=== PATIENT | male | born 1985 | race Caucasian/White ===

== ENCOUNTER 2020-06-30 09:05 | Outpatient (CLI) | payer BC, SELFPAY ==
--- NOTE | 2020-07-10 13:21 | WPDHOMESLEEP ---
Sleep Study - Home Unattended Date of Study: 06/30/20 Ordering Provider: Rai Napier DO Interpreting Provider: Remedios Frias MD Home Sleep Study Type: Apnea Link Air Height: 1.75 m Weight: 73.482 kg Body Mass Index: 23.9 Neck Circumference (inches): 12.5 [place]: 12 Reason for Sleep Study Excessive daytime sleepiness Sleep History Minh Marion is a 35-year-old man who has complaints of jaw and teeth soreness on waking. He sought care from his dentist who suggested a sleep study to see if the clinching of teeth was associated with sleep apnea. His has told him that he snores. He does not feel rested even after sleeping for 8 hours. He constantly snores and frequently is loud enough that she complains about it. 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 He has no family history of sleep issues. He rarely awakens at night with heartburn, belching or coughing. He does not awaken from sleep feeling short of breath. He occasionally has trouble sleep with a cold. He rarely wakes up gasping for breath at night. He occasionally has breathing problems at night observed by others. He never sweats excessively at night. He occasionally notices his heart pounding or beating irregularly at night. He occasionally falls asleep during the day, rarely involuntarily, never while driving. He does not have loss of muscle tone with strong emotion. He occasionally has daytime difficulties due to excessive sleepiness. He does not feel paralyzed on waking or falling asleep. He rarely has vivid dreamlike scenes upon awakening or falling asleep. He does not feel afraid to go to sleep. He rarely has nightmares. He rarely remembers his dreams. He occasionally has racing thoughts. He rarely feels sad or depressed. He occasionally has anxiety. He occasionally has muscular tension and occasionally notices parts of his body jerking. He rarely kicks at night. He frequently has crawling and aching feelings in his legs. He rarely has any kind of leg pain at night. He frequently has morning jaw pain. His sleep questionnaire indicates that he does not grind his teeth during sleep however his initial complaint included clenched jaws at night. He rarely is bothered by pain during the day. He does not awaken with pain during the night. He occasionally wakes up feeling stiff the morning. He rarely wakes up with sore achy muscles. He rarely wakes up with pain in the neck and spine. He has headaches, fatigue, concentration difficulties and he takes antacids regularly. He has occasional morning headaches. Normal bedtime is 10:00 p.m. falling asleep within 5-15 minutes, waking 3-4 times for 10-15 minutes. He often wakes due to a need to urinate which he attributes to kidney stones 14 years ago. Usually when he wakes, he will roll over and try to return to fall asleep again. If his wakefulness is persistent and he can't get back to sleep, he walks around his house. His normal wake up time is 5:30 a.m.. On the weekends, he stays awake later, 12 midnight and wakes at 6:30 a.m. in the morning. He estimates getting 6-8 hours of sleep normally. He does not take naps in the afternoon or evening. A short nap, 10 or 15 minutes long, may be refreshing. He is usually drowsy in the morning for 1 hour. He feels better in the evening compared to the morning. Habits: Former tobacco use. Caffeine 1 serving per day. Alcohol 1 serving per day. [facility] Past Medical History Medical History (Updated 07/10/20 @ 14:23 by Remedios Frias MD) Anxiety History of kidney stones Hyperlipidemia Hypersomnolence Family History Family History Father Patient's father is Social History Social History Smoking status: Former smoker Tobacco type: cigarettes Smoking end date: 03/13/14 Additional smoking a
[2020-07-10 14:22] VITALS: BMI 23.9
== END 2020-06-30 09:06 | disposition home or self-care (01) ==
LOC: ANHCSM 09:05
PROVIDERS: PCP Internal Medicine; Visit Provider Internal Medicine
DX: G47.10 Hypersomnia, unspecified (principal)
CPT/HCPCS: 95806

== ENCOUNTER → 2020-07-27 01:13 | Outpatient (CLI) | payer BC, SELFPAY ==
[2020-07-27 18:48] LABS: SARS-CoV-2 RNA PCR Negative
== END ==
PROVIDERS: PCP Internal Medicine; Visit Provider Internal Medicine Critical Care Medicine
DX: Z01.812 Encounter for preprocedural laboratory examination (principal); Z20.822 Contact with and (suspected) exposure to COVID-19
CPT/HCPCS: C9803; U0003; U0005

== ENCOUNTER 2020-07-29 08:09 | Outpatient (CLI) | payer BC, SELFPAY ==
--- NOTE | 2020-08-14 11:52 | WPDSLEEPSTUD ---
Sleep Study Date of Study: 07/29/20 Ordering Provider: Rai Napier DO Interpreting Physician: Remedios Frias MD Sleep Study Type: Polysomnogram Height: 1.75 m Weight: 73.482 kg Body Mass Index: 23.9 Neck Circumference (inches): 15 [place]: 12 Reason for Sleep Study Non restorative sleep, loud snoring His dentist recommended sleep study due to pain in the teeth and jaws, Sleep History Minh Marion is a 35-year-old male who constantly snores. Frequently it is loud enough that others complain about it. His dentist recommended a sleep study as the patient does have pain in the teeth and jaws. He occasionally awakens at night with heartburn, belching or coughing. He rarely awakens from sleep feeling short of breath. He frequently has trouble sleeping with a cold. He rarely wakes up gasping for breath during the night. He rarely has breathing problems at night observed by others. He does not sweat excessively at night. He rarely notices his heart pounding or beating irregularly at night. He rarely falls asleep during the day. He does not fall asleep involuntarily and he does not fall asleep while driving. he does not have loss of muscle tone was strong emotion. He rarely has daytime difficulties due to excessive sleepiness. He does not feel paralyzed on waking or falling asleep. He rarely has vivid dreamlike scenes upon awakening or falling asleep. He does not feel afraid to go to sleep. He rarely has nightmares. He occasionally remembers his dreams. He frequently has racing thoughts. He rarely feels sad or depressed. He occasionally has anxiety. He occasionally has muscular tension and notices parts of his body jerking. He rarely kicks during the night. He frequently has crawling and aching feelings in his legs. He rarely has any kind of leg pain at night. He occasionally has morning jaw pain. He occasionally grind his teeth during sleep. He rarely is bothered by pain during the day. He is not awakened by pain during the night. He occasionally wakes up feeling stiff in the morning. He never wakes up with sore or achy muscles. He does not wake up with pain in the neck and spine. He has headaches, fatigue and he takes antacids regularly. Normal bedtime is 10:30 p.m. falling asleep within 10-15 minutes typically waking 3-4 times at night to adjust position, go urinate or just move around. It takes him 15-30 minutes to return to sleep. He wakes the morning at 6:00 a.m.. On the weekends, bedtime is later, 12 midnight and he wakes later, 7:30 a.m.. He does not usually take naps in the afternoon or evening. A short 10 or 15 minute nap may be refreshing. He is usually drowsy in the morning for 1 hour or longer. Habits: Quit tobacco years ago. Caffeine 1 cup a day. Alcohol average 1 per day. No recreational drugs. [facility] Past Medical History Medical History Anxiety History of kidney stones Hyperlipidemia Hypersomnolence Family History Family History Father Patient's father is Social History Social History Smoking status: Former smoker Tobacco type: cigarettes Smoking end date: 03/13/14 Additional smoking assessment comments: Patient unsure how many years smoked Alcohol intake: current Medications Home Medications Medication Instructions Recorded Confirmed Type multivitamin 1 tablet PO DAILY 09/19/19 12/18/19 History amoxicillin 500 mg tablet 500 mg PO Q8H #30 tablet 11/06/19 11/06/19 Rx Sleep Procedure This test [facility] including EOG, EEG, submental EMG, EKG, nasal and oral airflow using thermistors and nasal pressure sensors, chest and abdominal belts for body position data, and pulse oximetry. Video monitoring was also performed. The study was scored u
[2020-08-14 12:23] VITALS: BMI 23.9
== END 2020-07-30 07:06 | disposition home or self-care (01) ==
LOC: ANHCSM 08:09
PROVIDERS: PCP Internal Medicine; Visit Provider Internal Medicine
DX: R06.83 Snoring (principal); G25.81 Restless legs syndrome
CPT/HCPCS: 95810

== ENCOUNTER 2020-10-19 13:32 | Outpatient (CLI) | payer BC, SELFPAY ==
--- NOTE | ~2020-10-19 | XR_ITS ---
XR ankle RT min 3V DATE: 10/19/2020 13:53 INDICATION: Right ankle pain TECHNIQUE: 4 views COMPARISON: None FINDINGS: No recent fracture or dislocation of the ankle or disruption of the ankle mortise. No perio steal reaction or bone destruction. IMPRESSION: No recent fracture or dislocation Reviewed, dictated and finalized at location A.
== END 2020-10-19 13:33 | disposition home or self-care (01) ==
PROVIDERS: PCP Internal Medicine; Visit Provider Internal Medicine
DX: M25.571 Pain in right ankle and joints of right foot (principal)
CPT/HCPCS: 73610